=== PATIENT | female | born 1955 | race Caucasian/White ===

== ENCOUNTER → 2024-01-02 15:14 | Outpatient (REF) | payer BC, SELFPAY | LOC: WDC 15:14 | PROVIDERS: ATTENDING PHYSICIAN Obstetrics & Gynecology Gynecology; FAMILY PHYSICIAN Internal Medicine | DX: Z12.31 Encounter for screening mammogram for malignant neoplasm of breast (principal) | CPT/HCPCS: 77063; 77067 ==

== ENCOUNTER → 2024-07-03 16:08 | Outpatient (REF) | payer BC, SELFPAY | LOC: RAD 16:08 | PROVIDERS: ATTENDING PHYSICIAN Psychiatry & Neurology Neurology; FAMILY PHYSICIAN Physician Assistant | DX: G43.009 Migraine without aura, not intractable, without status migrainosus (principal); G44.89 Other headache syndrome | CPT/HCPCS: 70496; Q9967 ==

== ENCOUNTER → 2025-01-04 15:21 | Outpatient (REF) | payer BC, SELFPAY | LOC: WDC 15:21 | PROVIDERS: ATTENDING PHYSICIAN Obstetrics & Gynecology Gynecology; FAMILY PHYSICIAN Internal Medicine | DX: Z12.31 Encounter for screening mammogram for malignant neoplasm of breast (principal) | CPT/HCPCS: 77063; 77067 ==

== ENCOUNTER 2025-03-04 12:02 | Emergency (ER) | payer BC, SELFPAY ==
[2025-03-04 12:04] VITALS: BP 149/88
[2025-03-04 12:30] LABS: Hematocrit 40.8 % (37.0-47.0); Hemoglobin 13.3 g/dL (12.0-16.0); Mean Corp Hgb Conc. 32.6 g/dL (33.0-37.0); Mean Corpuscular Volume 86.3 fL (81.0-99.0); Nucleated Red Blood Cells % 0 %; Platelet Count 206 10^3/uL (130-400); Red Cell Dist. Width 13.1 % (11.5-14.5)
[2025-03-04 12:44] LABS: ALT (SGPT) 36 U/L (0-35); AST (SGOT) 33 U/L (14-36); Albumin 4.5 g/dl (3.5-5.0); Alkaline Phosphatase 70 U/L (38-126); Blood Urea Nitrogen 19 mg/dl (7-17); Calcium 9.4 mg/dl (8.4-10.2); Carbon Dioxide 23 mmol/L (22-30); Chloride 107 mmol/L (98-107); Estimated Creatinine Clearance 68 ml/min; Glucose 129 mg/dl (70-99); Potassium 3.9 mmol/L (3.5-5.1); Sodium 139 mmol/L (135-145); Total Protein 7.0 g/dl (6.3-8.2); eGFR > 60.00
--- NOTE | 2025-03-04 13:06 | ED.GENMED ---
History of Present Illness
General
Chief Complaint: Dizziness
Source: patient
Exam Limitations: none
Time Seen by Provider: 03/04/25 12:55
History of Present Illness
History of Present Illness:
See MDM
Past History
Past History
ED Past Medical History: None
ED Past Surgical History: Orthopedic
Social History
Tobacco: Non-smoker
Alcohol: None
Phy Exam
Physical Exam
Physical Exam:
See MDM
Course
Orders/Labs/Results
Orders:
Orders
03/04/25 12:13
Electrocardiogram (*1) Urgent
Reason for Study: Abdominal Pain
EKG- Treatment ONCE
03/04/25 12:19
Complete Blood Count/With Diff Urgent
Comprehensive Metabolic Panel Urgent
03/04/25 13:06
CT Head W/o Iv Contrast Urgent
Comment:
Reason For Exam: persistent dizziness
Meclizine [Antivert] 25 mg PO NOW STA
Ondansetron Injectable [Zofran] 4 mg IV NOW STA
Abnormal Lab Results
03/04/25
12:19
MCHC 32.6 L g/dL
(33.0-37.0)
MPV 11.4 H fL
(7.4-10.4)
BUN 19 H mg/dl
(7-17)
Glucose 129 H mg/dl
(70-99)
ALT 36 H U/L
(0-35)
03/04/25 12:19
03/04/25 12:19
Vital Signs
Initial and Last Documented VS:
Initial Vital Signs
Pulse Resp BP Pulse Ox
74 20 149/88 96
03/04/25 12:04 03/04/25 12:04 03/04/25 12:04 03/04/25 12:04
Last Documented Vital Signs
Temp Pulse Resp BP Pulse Ox
97.9 F 74 20 149/88 96
03/04/25 12:14 03/04/25 12:04 03/04/25 12:04 03/04/25 12:04 03/04/25 13:08
MDM/Problems Addressed
Differential Diagnosis Includes:
Note:
CHIEF COMPLAINT(S)
Dizziness
HISTORY OF PRESENT ILLNESS
The patient is a 69-year-old female who presents with dizziness. The dizziness started suddenly, and she describes it as the room spinning, making it difficult to maintain balance. She also experiences vision changes, noting blurriness and movement.
The patient has not had recent infections, viruses, or hearing loss, but there is potential involvement of the inner ear. The dizziness could be consistent with benign paroxysmal positional vertigo (BPPV), as it is aggravated by head movements.
Upon further examination, there is significant earwax impaction noted, which might worsen the symptoms. A neurologic assessment, including [id number]-bx-[id number] and positional maneuvers, was performed to rule out stroke, which seems unlikely given the
patients ability to perform the tasks. The patient has experienced nausea and feelings of potential emesis. Medications such as Versed were administered by EMS with minimal relief, and a trial of Meclizine is planned to alleviate symptoms. Further
diagnostic evaluation with a CT scan is scheduled to rule out any mass or cerebrovascular accident.
PAST MEDICAL AND SURIGICAL HISTORY
The patient has an existing issue with earwax impaction that has been previously examined by medical radiation therapist.
MEDICATIONS
Versed was administered by EMS for dizziness with minimal effect. A prescription for Meclizine has been planned as well as the provision for IV Zofran for symptomatic relief of nausea. If symptoms persist, IV Valium is considered.
PHYSICAL EXAM
General: Alert, no acute distress.
Skin: Warm, dry.
Head: Normocephalic, atraumatic.
Neck: Supple, trachea midline.
Eye Ears, nose, mouth and throat: Oral mucosa moist. Earwax impaction noted in the right ear. Horizontal nystagmus noted to the right
Cardiovascular: Normal peripheral perfusion, No edema.
Respiratory: Respirations are non-labored.
Gastrointestinal: Abdomen nondistended.
Back: Normal range of motion, normal alignment.
Musculoskeletal: Normal ROM, normal strength.
Neurological: Alert and oriented to person, place, time, and situation. No focal neurological deficit observed. Afrvba-vh-ilop test performed satisfactorily. Positive Jose-Hallpike to the right
Psychiatric: Cooperative, appropriate mood & affect.
PROBLEM LIST
Acute:
- Dizziness with possible benign paroxysmal positional vertigo
- Nausea secondary to vertigo
PLAN
- Administer Meclizine to address vestibular symptoms.
- Administer IV Zofran for nausea relief.
- Obtain CT scan of the head to rule out intracranial pathology, including mass or stroke.
- Consider use of IV Valium if dizziness does not improve with initial treatment.
- Admission for overnight observation if symptoms persist despite medical intervention due to the risk of falls and inability to safely ambulate.
DIFFERENTIAL DIAGNOSIS
The Differential Diagnosis includes, in no particular order and is not limited to:
1. Benign Paroxysmal Positional Vertigo (BPPV)
2. Vestibular Neuritis
3. Labyrinthitis
4. Meniere�s Disease
5. Vestibular Migraine
6. Acute Otitis Media
7. Stroke, particularly posterior circulation stroke
8. Transient Ischemic Attack (TIA)
9. Dehydration or electrolyte imbalance
10. Acoustic Neuroma
My independent EKG interpretation is:
- Rhythm: Sinus rhythm with sinus arrhythmia
- Heart Rate: 70 beats per minute
- [place]: Normal axis
- Abnormalities: Questionable left ventricular hypertrophy (LVH)
- ST Segment Changes: No ST elevation
SUMMARY OF ENCOUNTER
The patient, a 69-year-old female, presented to the emergency department with sudden onset dizziness characterized by the sensation of the room spinning, affecting her balance, and accompanied by vision changes such as blurriness and movement. There
was potential involvement of the inner ear, suspected to be benign paroxysmal positional vertigo (BPPV). A CT scan of the head was performed and returned negative for any intracranial pathology. The patients symptoms improved significantly with the
administration of meclizine.
DISPOSITION
Discharge
ASSESSMENT
Acute dizziness likely secondary to benign paroxysmal positional vertigo (BPPV); symptoms resolved after administration of meclizine.
PLAN
The patient was advised to follow up with an ear, nose, and throat doctor in the outpatient setting for further assessment and management.
INDEPENDENT REVIEW OF LABS AND INTERPRETATION OF TESTS
- My independent CT scan interpretation is negative for intracranial pathology.
PATIENT EDUCATION AND COUNSELING
The patient and family were educated on the nature of her condition, including the probable diagnosis of benign paroxysmal positional vertigo, and the importance of follow-up care with an ENT specialist to further evaluate and manage her ear-related
symptoms.
FOLLOW-UP INSTRUCTIONS
Follow up with an ear, nose, and throat doctor in the outpatient setting.
MEDICATION RECONCILIATION
- Meclizine was prescribed on an as-needed basis for dizziness relief.
MEDICAL DECISION MAKING
- Complexity of Data Reviewed:
- Differential Diagnosis: Includes benign paroxysmal positional vertigo (BPPV), vestibular neuritis, labyrinthitis, Meniere�s Disease, vestibular migraine, acute otitis media, stroke, transient ischemic attack (TIA), dehydration or electrolyte
imbalance, acoustic neuroma.
- Data:
- Category 1:
- My independent EKG interpretation: Sinus rhythm with sinus arrhythmia, heart rate 70 bpm, normal axis, questionable LVH, no ST elevation.
- My independent CT interpretation: Negative for intracranial pathology.
-Risk: Prescription medication management was prescribed for the patient.
*Pulse Oximetry
SaO2: 96
Oxygen Mode of Delivery: Room air
Patient hypoxic: no
*Critical Care Note
Total Time (30-74mins, 75-104mins- exclusive of procedures): Not Applicable
ED Attending Note
-
Portions of this chart may have been created with voice recognition software.� Occasional wrong word or��sound alike� substitutions may have occurred due to the inherent limitations of voice recognition software.
Discharge Plan
Departure
Patient Disposition: Home (Routine Discharge)
Date of Disposition: 03/04/25
Time of Disposition: 14:59
Patient with high blood pressure during this ER visit?: Yes
Discharge Problem:
Vertigo
Instructions: Vertigo (a Type of Dizziness) (DC), BLOOD PRESSURE
Prescriptions:
New
meclizine [Antivert] 25 mg Tablet,Chewable
25 mg PO BIDPRN PRN (Reason: nausea or vertigo) Qty: 14 0RF
Referrals:
UNKNOWN - PT DOES,NOT KNOW [Family Provider]
Fabiola Rashid MD [Active, Otology]
Activity Restrictions/Additional Instructions:
Please return for any worsening symptoms.
You may return at any time if you have further concerns.
Please follow up with your doctor at the first available appointment, preferably this week.
Please make an appointment to see the ENT. Please take the medication as needed for dizziness.
Thank you for choosing [facility].
Interventions
Interventions:
*Risk Screen - Suicide Last Done: 03/04/25 12:04
*General Assessment Last Done: 03/04/25 12:04
*Neglect/Abuse Screening Last Done: 03/04/25 12:04
Discharge Date and Time
Print Language: GEORGIAN
[2025-03-04] MEDS: ANTIVERT 25 MG PO (13:11)
[2025-03-04] MEDS: ZOFRAN 4 MG IV (13:11)
[2025-03-04 14:00] VITALS: BP 123/66
== END 2025-03-04 15:17 | disposition home or self-care (01) ==
LOC: EMR 12:02
PROVIDERS: Emergency Medicine; EMERGENCY PHYSICIAN Student in an Organized Health Care Education/Training Program
DX: R42 Dizziness and giddiness (principal); R11.0 Nausea; H61.21 Impacted cerumen, right ear
CPT/HCPCS: 99284; 96374; 70450; 80053; 85025; 93005

== ENCOUNTER → 2025-04-12 13:28 | Outpatient (REF) | payer BC, SELFPAY | LOC: RAD 13:28 | PROVIDERS: ATTENDING PHYSICIAN Internal Medicine Endocrinology, Diabetes & Metabolism; FAMILY PHYSICIAN Internal Medicine | DX: M81.0 Age-related osteoporosis without current pathological fracture (principal) | CPT/HCPCS: 77080 ==

== ENCOUNTER 2025-04-27 06:34 | Day surgery (SDC) | payer BC, SELFPAY | END 2025-04-27 15:41 | disposition home or self-care (01) | LOC: GI 06:34 | PROVIDERS: ATTENDING PHYSICIAN Internal Medicine Gastroenterology | DX: Z12.11 Encounter for screening for malignant neoplasm of colon (principal); D12.0 Benign neoplasm of cecum; D12.2 Benign neoplasm of ascending colon; K62.1 Rectal polyp; Z80.0 Family history of malignant neoplasm of digestive organs | CPT/HCPCS: 45380; 88305 ==